=== PATIENT | male | born 1955 | race Two or more races ===

== ENCOUNTER → 2019-01-11 | Emergency (ER) | payer MEDICARE, BC ==
[~2019-01-11] VITALS: Ht 182.9 cm; Wt 77.1 kg
[~2019-01-11] MED LIST: ALPRAZOLAM 0.5 MG TABLET ONE; ALPRAZOLAM 0.5 MG TABLET PO ONE; AMLO10TA7 NG; CARV12.52 NG; CLONIDINE HCL 0.1 MG TABLET ONE; CLONIDINE HCL 0.1 MG TABLET PO ONE; ENALAPRILAT INJ (1.25 MG/ML) 1.25 MG/ML VIAL IV ONE; ENALAPRILAT INJ (1.25 MG/ML) 1.25 MG/ML VIAL IV PRN; Folic Acid PO; IV NS 0.9% 1,000 ML BAG IV ONE; LISI10TA59 PO; LORA-258 PO; PANT40TA2 PO; SUCR1ORA6 GT; THIA100T13 PO
--- NOTE | 2019-01-11 20:45 | NUR ---
Pt is in bed. VS taken.
[2019-01-11 21:31] LABS: BASOPHILS % (AUTO) 0.4 % (0.0-2.0); EOSINOPHILS % (AUTO) 4.1 % (0.0-6.0); HEMATOCRIT 44 % (39-51); HEMOGLOBIN 14.4 g/dL (13.5-17.5); LYMPHOCYTES # (AUTO) 0.7 /CMM (0.8-4.8); LYMPHOCYTES % (AUTO) 14.9 % (20.0-44.0); MEAN CORPUSCULAR HGB CONC 33 g/dl (31.0-36.0); MEAN CORPUSCULAR VOLUME 90 fL (80-96); MONOCYTES # (AUTO) 0.5 /CMM (0.1-1.30); MONOCYTES % (AUTO) 10.5 % (2.0-12.0); NEUTROPHILS # (AUTO) 3.1 /CMM (1.8-8.9); NEUTROPHILS % (AUTO) 70.1 % (43.0-81.0); PLATELET COUNT (AUTO) 169 /CMM (150-450); RED BLOOD CELL COUNT(AUTO) 4.84 MIL/uL (4.5-6.0); WHITE BLOOD COUNT (AUTO) 4.4 K/uL (4.3-11.0)
[2019-01-11 21:38] LABS: CALCIUM, SERUM 10.3 mg/dL (8.5-10.1); CARBON DIOXIDE 31 mmol/L (21-32); CHLORIDE 102 mmol/L (98-107); CREATININE 0.9 mg/dL (0.6-1.3); GLUCOSE 119 mg/dL (74-106); POTASSIUM 4.9 mmol/L (3.5-5.1); SODIUM SERUM 138 mmol/L (136-145); UREA NITROGEN, BLOOD 20 mg/dL (7-18)
[2019-01-11 21:43] LABS: ALANINE AMINOTRANSFERASE 23 U/L (12-78); ALBUMIN 3.8 g/dL (3.4-5.0); ALKALINE PHOSPHATASE 83 U/L (46-116); ASPARTATE AMINOTRANSFERASE 18 U/L (15-37); BILIRUBIN,DIRECT 0.1 mg/dL (0.0-0.2); BILIRUBIN,TOTAL 0.4 mg/dL (0.2-1.0); LIPASE 116 U/L (73-393); TOTAL PROTEIN, SERUM 7.1 g/dL (6.4-8.2)
--- NOTE | 2019-01-11 21:46 | NUR ---
Pt is in bed comfortably. BP 195/120. Pulse 73. EKG showed normal sinus rhytm 73 bpm. Meds given as ordered.
[2019-01-11 23:30] VITALS: BP 139/97
== END | disposition home or self-care (01) ==
LOC: EDUNIT# 20:22 → ER 20:28
DX: I10 Essential (primary) hypertension (principal); F41.9 Anxiety disorder, unspecified; F32.9 Major depressive disorder, single episode, unspecified; I25.2 Old myocardial infarction; Z98.890 Other specified postprocedural states; Z85.21 Personal history of malignant neoplasm of larynx; Z88.2 Allergy status to sulfonamides
CPT/HCPCS: 36415; 80048; 80076; 83690; 84484; 85025; 93005; 96374; 99284; J3490; J7030